=== PATIENT | female | born 1955 | race Asian ===

== ENCOUNTER 2016-12-02 04:26 | Emergency (ER) | payer BC, MEDICAID ==
[~2016-12-02] VITALS: Ht 160 cm; Wt 64.0 kg
[~2016-12-02 04:26] MED LIST: HEARTBURN MED
[2016-12-02] MEDS ORDERED: ONDANSETRON 2MG/ML, 2ML ONE (05:17)
[2016-12-02] MEDS ORDERED: HYDROmorphone 1 MG/ML, 1ML ONE ×2 (05:17→06:58)
[2016-12-02] MEDS ORDERED: KETOROLAC 30 MG/1 ML ONE (05:17)
[2016-12-02] MEDS: HYDROmorphone 1 MG/ML, 1ML IVPush PRN ×2 (05:25→07:03)
[2016-12-02] MEDS ORDERED: SODIUM CHLORIDE FLUSH 10ML SYR IVF ONE (05:30)
[2016-12-02] MEDS ORDERED: KETOROLAC 30 MG/1 ML IVPush ONE (05:30)
[2016-12-02] MEDS ORDERED: SODIUM CHLORIDE 0.9% 1,000ML IV ONE (05:30)
[2016-12-02] MEDS ORDERED: ONDANSETRON 2MG/ML, 2ML IVPush ONE (05:30)
[2016-12-02] MEDS ORDERED: IBUP200C PO (05:33)
[2016-12-02] MEDS ORDERED: DOXY25TA PO (05:34)
[2016-12-02 05:54] LABS: BLOOD UREA NITROGEN 24 mg/dL (7-18)
[2016-12-02] MEDS ORDERED: OMNIPAQUE 350 MG/ML, 100ML BOTTLE ONE (07:59)
[2016-12-02 08:52] VITALS: BP 100/71
== END 2016-12-02 08:54 | disposition home or self-care (01) ==
LOC: ED 05:15
DX: N20.1 Calculus of ureter (principal); N23 Unspecified renal colic; N13.30 Unspecified hydronephrosis; K21.9 Gastro-esophageal reflux disease without esophagitis; F17.200 Nicotine dependence, unspecified, uncomplicated; Z88.0 Allergy status to penicillin
CPT/HCPCS: 36415; 74177; 80048; 81001; 82040; 85025; 96361; 96374; 96375; 99285; J1170; J1885; J2405; J7030; Q9967

== ENCOUNTER 2018-04-18 00:24 | Emergency (ER) | payer SELFPAY ==
[~2018-04-18] VITALS: Ht 157.5 cm; Wt 60.0 kg
[~2018-04-18 00:24] MED LIST changes: +DOXY25TA45 PO; +IBUP-1623 PO
[2018-04-18 00:25] VITALS: BP 116/72
[2018-04-18] MEDS ORDERED: METHOCARBAMOL 750 MG TABLET ONE (00:58)
[2018-04-18] MEDS ORDERED: IBUPROFEN 800 MG TABLET ONE (00:58)
[2018-04-18] MEDS ORDERED: IBUPROFEN 200 MG TABLET PO ONE (01:00)
[2018-04-18] MEDS ORDERED: METHOCARBAMOL 750 MG TABLET PO ONE (01:00)
== END 2018-04-18 02:05 | disposition home or self-care (01) ==
LOC: ED 00:42
DX: M54.2 Cervicalgia (principal); M25.531 Pain in right wrist; K21.9 Gastro-esophageal reflux disease without esophagitis
CPT/HCPCS: 72050; 99283

== ENCOUNTER 2019-05-11 17:37 | Emergency (ER) | payer OTHER ==
[~2019-05-11] VITALS: Ht 157.5 cm; Wt 56.2 kg
--- NOTE | 2019-05-11 18:01 | NUR ---
NO ANSWER TO TRIAGE X 1.
[2019-05-11 18:47] LABS: BASOPHILS # (AUTO) 0.03 x10^3/uL (0-0.1); BASOPHILS % (AUTO) 1 % (0-1); EOSINOPHILS # (AUTO) 0.07 x10^3/uL (0-0.4); EOSINOPHILS % (AUTO) 1 % (1-7); LYMPHOCYTES # (AUTO) 2.13 x10^3/uL (1-3.4); LYMPHOCYTES % (AUTO) 40 % (22-44); MD NO; MEAN CORPUSCULAR HEMOGLOBIN 30.9 pg (27.0-34.8); MEAN CORPUSCULAR HGB CONC 32.3 g/dL (32.4-35.8); MEAN CORPUSCULAR VOLUME 95.6 fL (80-100); MEAN PLATELET VOLUME 8.4 fL (7.4-10.4); MONOCYTES # (AUTO) 0.38 x10^3/uL (0.2-0.8); MONOCYTES % (AUTO) 7 % (2-9); NEUTROPHILS # (AUTO) 2.76 x10^3/uL (1.8-6.8); NEUTROPHILS % (AUTO) 52 % (42-75); PLATELET COUNT 295 x10^3/uL (130-400); RED BLOOD COUNT 4.52 x10^6/uL (3.82-5.3); RED CELL DISTRIBUTION WIDTH 14.2 % (9.6-15.2)
[2019-05-11 18:50] LABS: MICROSCOPIC INDICATED
[2019-05-11 18:57] LABS: CULTURE INDICATED? NO
[2019-05-11 19:00] LABS: ALANINE AMINOTRANSFERASE 27 U/L (12-78); ALBUMIN 3.6 g/dL (3.4-5.0); ANION GAP 5 mmol/L (5-15); CALCIUM 9.2 mg/dL (8.5-10.1); CHLORIDE 114 mmol/L (98-107); CREATININE 0.79 mg/dL (0.55-1.02)
[2019-05-11 19:02] LABS: ALKALINE PHOSPHATASE 185 U/L (45-117); BILIRUBIN,TOTAL 0.3 mg/dL (0.2-1.0); TOTAL PROTEIN 7.1 g/dL (6.4-8.2)
--- NOTE | 2019-05-11 22:55 | NUR ---
PT TO LOBBY
--- NOTE | 2019-05-11 22:57 | NUR ---
pt to room from lobby
[2019-05-11] MEDS ORDERED: MORPHINE SULFATE 4 MG/ML, 1ML IVPush PRN (23:30)
[2019-05-11] MEDS ORDERED: SODIUM CHLORIDE FLUSH 10ML SYR IVF ONE (23:30)
[2019-05-11] MEDS ORDERED: ONDANSETRON 2MG/ML, 2ML IVPush ONE (23:30)
--- NOTE | 2019-05-11 23:36 | NUR ---
Pt here for sudden onset of pelvic pain and severe distress of unknown cause. Pt reports it was sudden and she could not tolerate it anymore. Pt denies any trauma. Pt reports she fell on her butt 19 years ago.Pt has stable pelvis and pain is towards her central pelvic area where pt points. Pt conencted to monitors and call light in reach. Awaiting further orders.
--- NOTE | 2019-05-11 23:52 | NUR ---
PIV placed and pt to ct a this time.
[2019-05-12] MEDS ORDERED: OMNIPAQUE 350 MG/ML, 100ML BOTTLE ONE (00:05)
[2019-05-12] MEDS ORDERED: ONDANSETRON 2MG/ML, 2ML ONE (00:08)
[2019-05-12] MEDS ORDERED: MORPHINE SULFATE 4 MG/ML, 1ML ONE (00:09)
--- NOTE | 2019-05-12 00:18 | NUR ---
Pt medicated per emar. Report to Luda Spivey RN
--- NOTE | 2019-05-12 00:30 | NUR ---
REPORT RECEIVED FROM ALIREZA RIVERA. ASSUMING CARE OF PT AT THIS TIME
[2019-05-12 01:09] VITALS: BP 131/90
--- NOTE | 2019-05-12 01:10 | NUR ---
break rn, pt resting, ststes that she feels better vss
--- NOTE | 2019-05-12 01:27 | NUR ---
Patient/Caregiver given discharge instructions and they have confirmed that they understand the instructions. Patient ambulatory with steady gait.
== END 2019-05-12 01:28 | disposition home or self-care (01) ==
LOC: ED 05-12 01:22
DX: R31.29 Other microscopic hematuria (principal); R10.32 Left lower quadrant pain; R10.31 Right lower quadrant pain; G89.29 Other chronic pain; F17.200 Nicotine dependence, unspecified, uncomplicated
CPT/HCPCS: 36415; 74177; 76770; 80053; 81001; 85025; 96374; 96375; 99284; J2270; J2405; Q9967

== ENCOUNTER 2019-05-23 00:45 | Emergency (ER) | payer OTHER ==
[~2019-05-23] VITALS: Ht 162.6 cm; Wt 67.0 kg
[2019-05-23] MEDS ORDERED: SODIUM CHLORIDE FLUSH 10ML SYR IVF ONE (01:00)
[2019-05-23 01:14] LABS: BASOPHILS # (AUTO) 0.09 x10^3/uL (0-0.1); BASOPHILS % (AUTO) 1 % (0-1); EOSINOPHILS % (AUTO) 1 % (1-7); LYMPHOCYTES # (AUTO) 2.53 x10^3/uL (1-3.4); LYMPHOCYTES % (AUTO) 24 % (22-44); MD NO; MEAN CORPUSCULAR HEMOGLOBIN 30.7 pg (27.0-34.8); MEAN CORPUSCULAR HGB CONC 32.5 g/dL (32.4-35.8); MEAN CORPUSCULAR VOLUME 94.6 fL (80-100); MEAN PLATELET VOLUME 7.9 fL (7.4-10.4); MONOCYTES # (AUTO) 0.62 x10^3/uL (0.2-0.8); MONOCYTES % (AUTO) 6 % (2-9); NEUTROPHILS # (AUTO) 7.09 x10^3/uL (1.8-6.8); NEUTROPHILS % (AUTO) 68 % (42-75); PLATELET COUNT 273 x10^3/uL (130-400); RED BLOOD COUNT 4.63 x10^6/uL (3.82-5.3); RED CELL DISTRIBUTION WIDTH 13.6 % (9.6-15.2)
[2019-05-23 01:25] LABS: ALANINE AMINOTRANSFERASE 26 U/L (12-78); ALBUMIN 3.6 g/dL (3.4-5.0); ANION GAP 6 mmol/L (5-15); CALCIUM 9.5 mg/dL (8.5-10.1); CHLORIDE 112 mmol/L (98-107); CREATININE 1.35 mg/dL (0.55-1.02)
[2019-05-23 01:28] LABS: ALKALINE PHOSPHATASE 204 U/L (45-117); BILIRUBIN,TOTAL 0.2 mg/dL (0.2-1.0); TOTAL PROTEIN 7.2 g/dL (6.4-8.2)
[2019-05-23] MEDS ORDERED: MORPHINE SULFATE 4 MG/ML, 1ML ONE ×2 (01:35→02:04)
[2019-05-23] MEDS: MORPHINE SULFATE 4 MG/ML, 1ML IVPush PRN ×2 (01:37→02:07)
[2019-05-23] MEDS ORDERED: PROCHLORPERAZINE 5 MG/ML, 2ML ONE (01:53)
[2019-05-23] MEDS ORDERED: PROCHLORPERAZINE 5 MG/ML, 2ML IVPush ONE (02:00)
[2019-05-23] MEDS ORDERED: SODIUM CHLORIDE 0.9% 1,000ML IVBOLUS ONE (02:00)
--- NOTE | 2019-05-23 02:10 | NUR ---
PT MEDICATED PER JUL. PAIN 02/19, WARM BLANKETS PROVIDED. REPOSITIONED FOR COMFORT. FAMILY AT BEDSIDE. NO OTHER NEEDS AT THIS TIME.
[2019-05-23 02:13] LABS: MICROSCOPIC INDICATED
--- NOTE | 2019-05-23 02:16 | NUR ---
PT PLACED ON 2L 02. 96%
[2019-05-23 02:29] LABS: CULTURE INDICATED? NO
[2019-05-23] MEDS ORDERED: OMNIPAQUE 350 MG/ML, 100ML BOTTLE ONE (02:56)
--- NOTE | 2019-05-23 03:32 | NUR ---
PT BACK FROM CT, WATER PROVIDED, REPOSITIONED FOR COMFORT.
[2019-05-23] MEDS ORDERED: KETOROLAC 30 MG/1 ML ONE (04:14)
[2019-05-23 04:29] VITALS: BP 117/61
[2019-05-23] MEDS ORDERED: KETOROLAC 30 MG/1 ML IVPush ONE (04:30)
== END 2019-05-23 04:32 | disposition home or self-care (01) ==
LOC: ED 01:19
DX: N13.2 Hydronephrosis with renal and ureteral calculous obstruction (principal); R10.32 Left lower quadrant pain; R31.9 Hematuria, unspecified; F17.200 Nicotine dependence, unspecified, uncomplicated; K21.9 Gastro-esophageal reflux disease without esophagitis; R11.2 Nausea with vomiting, unspecified
CPT/HCPCS: 36415; 74174; 76830; 80053; 81001; 83690; 85025; 96361; 96374; 96375; 99284; J0780; J1885; J2270; J7030; Q9967

== ENCOUNTER 2020-03-09 22:06 | Inpatient (IN) | payer MEDICAID ==
[~2020-03-09] VITALS: Ht 160 cm; Wt 55.2 kg
--- NOTE | 2020-03-09 22:41 | NUR ---
PT CAME IN CO OF BILAT FLANK PAIN. WAS SEEN AT [facility] AND DX WITH KIDNEY STONES. THE SON OF SEEMED UNSURE BUT HE SAID "SHE MIGHT BE GETTING SURGERY ON THEM". PT AMBULATED TO BATHROOM WITH ASSISTANCE AND PROVIDED UA. PT RESTING IN [facility]. SON BEDSIDE.
[2020-03-09] MEDS ORDERED: ONDANSETRON 2MG/ML, 2ML ONE (23:23)
[2020-03-09] MEDS ORDERED: MORPHINE SULFATE 4 MG/ML, 1ML ONE (23:23)
[2020-03-09] MEDS ORDERED: MORPHINE SULFATE 4 MG/ML, 1ML IVPush ONE (23:30)
[2020-03-09] MEDS ORDERED: ONDANSETRON 2MG/ML, 2ML IVPush ONE (23:30)
--- NOTE | 2020-03-09 23:39 | NUR ---
PT RESTING IN [facility]. NAD. VSS
[2020-03-09 23:42] LABS: BASOPHILS % (AUTO) 1 % (0-1); EOSINOPHILS % (AUTO) 2 % (1-7); LYMPHOCYTES % (AUTO) 36 % (22-44); MEAN CORPUSCULAR HEMOGLOBIN 31.1 pg (27.0-34.8); MEAN CORPUSCULAR HGB CONC 32.4 g/dL (32.4-35.8); MEAN PLATELET VOLUME 7.6 fL (7.4-10.4); MONOCYTES % (AUTO) 8 % (2-9); NEUTROPHILS % (AUTO) 53 % (42-75); PLATELET COUNT 256 x10^3/uL (130-400); RED BLOOD COUNT 4.21 x10^6/uL (3.82-5.3); RED CELL DISTRIBUTION WIDTH 13.3 % (9.6-15.2)
[2020-03-09 23:44] LABS: MD NO
[2020-03-09 23:48] LABS: MICROSCOPIC AUTO
[2020-03-09 23:52] LABS: ALBUMIN 3.7 g/dL (3.4-5.0); ANION GAP 3 mmol/L (5-15); CALCIUM 9.2 mg/dL (8.5-10.1); CHLORIDE 109 mmol/L (98-107)
[2020-03-09 23:55] LABS: TROPONIN I < 0.015 ng/mL (0.000-0.045)
[2020-03-10] MEDS ORDERED: OMNIPAQUE 350 MG/ML, 100ML BOTTLE ONE (00:35)
[2020-03-10] MEDS ORDERED: CEFTRIAXONE PMX 1GM/50ML 50 ML ONE (00:37)
--- NOTE | 2020-03-10 00:49 | NUR ---
IV FLUIDS INFUSING AT THIS TIME. PT STATES "IM FEELING MUCH BETTER. THANK YOU"
[2020-03-10] MEDS ORDERED: CEFTRIAXONE PMX 1GM/50ML 50 ML IV ONE ×2 (01:00→06:57)
[2020-03-10] MEDS ORDERED: SODIUM CHLORIDE 0.9% 1,000ML IVBOLUS ONE (01:00)
[2020-03-10] MEDS ORDERED: AZITHROMYCIN 500 MG in SODIUM CHLORIDE 0.9% 250 ML IV ONE (01:30)
--- NOTE | 2020-03-10 01:48 | NUR ---
REPORT OF PT FROM NICOLE BOND AND ASSUMING CARE OF PT AT THIS TIME.
[2020-03-10] MEDS ORDERED: NICOTINE 21 MG/24 HR PATCH.TD24 ONE (02:28)
[2020-03-10] MEDS: NICOTINE 14MG/24 HR PATCH.TD24 TD ONE ×2 (02:47→03:00)
--- NOTE | 2020-03-10 02:48 | NUR ---
VERBAL ORDERS RECEIVED FOR 21 MG NICOTINE PATCH. CLARIFIED ORIGINAL ORDER WITH DR. PALACIOS WITH PERMISSION TO CHANGE ORDER TO 21 MG PATCH FOR PT OVER PACK A DAY SMOKER.
[2020-03-10] MEDS ORDERED: ENALAPRILAT 1.25 MG/ML, 2ML IVPush PRN (03:00)
[2020-03-10] MEDS ORDERED: LABETALOL 5MG/ML, 20ML IVPush PRN (03:00)
[2020-03-10] MEDS ORDERED: NICOTINE 21 MG/24 HR PATCH.TD24 TD ONE (03:00)
[2020-03-10] MEDS ORDERED: morphine SULFATE 10 MG/ML, 1ML IVPush PRN (03:00)
[2020-03-10] MEDS ORDERED: BISACODYL 10 MG SUPP PR PRN (03:00)
[2020-03-10] MEDS ORDERED: ONDANSETRON ODT 4 MG PO PRN (03:00)
[2020-03-10] MEDS ORDERED: DOCUSATE 100 MG CAPSULE PO PRN (03:00)
[2020-03-10] MEDS ORDERED: ONDANSETRON 2MG/ML, 2ML IVPush PRN ×2 (03:00→08:00)
[2020-03-10] MEDS: SODIUM CHLORIDE 0.9% 1,000 ML IV SCH ×2 (03:00→12:15)
[2020-03-10] MEDS: LABETALOL MC SCH ×4 (03:00→23:28)
[2020-03-10] MEDS ORDERED: DOXYLAMINE 25MG TABLET PO PRN (03:00)
--- NOTE | 2020-03-10 03:02 | NUR ---
PER PT, PLEASE CALL TERRY HCAIREZ AT [phone] WITH ANY CHANGES IN PT CONDITION OR DISPOSITION.
--- NOTE | 2020-03-10 03:03 | NUR ---
HOSPITAL BED REQUESTED FOR PT AT THIS TIME.
--- NOTE | 2020-03-10 04:53 | NUR ---
PT CHANGED INTO HOSPITAL BED AT THIS TIME.
[2020-03-10] MEDS ORDERED: FENTANYL PF 100 MCG/2ML ONE ×2 (06:38→07:54)
[2020-03-10] MEDS ORDERED: MIDAZOLAM 1 MG/ML, 2ML ONE (06:38)
--- NOTE | 2020-03-10 06:40 | NUR ---
Report given to [employer]PPORT TEAM [employer]
[2020-03-10] MEDS ORDERED: CHLORHEXIDINE 15 ML UDC ONE (06:45)
[2020-03-10] MEDS ORDERED: PROPOFOL 10 MG/ML, 20ML ONE (06:57)
[2020-03-10] MEDS ORDERED: ONDANSETRON 2MG/ML, 2ML ONE (06:57)
[2020-03-10] MEDS ORDERED: DEXAMETHASONE 4 MG/ML, 1ML ONE (06:57)
[2020-03-10] MEDS ORDERED: LIDOCAINE PF 2%, 5ML ONE (06:57)
[2020-03-10] MEDS ORDERED: KETOROLAC 30 MG/1 ML ONE (07:54)
[2020-03-10] MEDS ORDERED: ACETAMINOPHEN 650 MG/20.3 ML UDC ONE (07:54)
[2020-03-10] MEDS ORDERED: OXYcodone 5 MG/5 ML ORAL.SOL UDC ONE (07:54)
[2020-03-10] MEDS ORDERED: METHOCARBAMOL 1,000 MG in DEXTROSE 5% 100 ML IV PRN (08:00)
[2020-03-10] MEDS ORDERED: HYDROmorphone 1 MG/ML, 1ML INJ IVPush PRN (08:00)
[2020-03-10] MEDS ORDERED: DIAZEPAM 5 MG/ML, 2ML IVPush PRN (08:00)
[2020-03-10] MEDS ORDERED: KETOROLAC 30 MG/1 ML IV PRN (08:00)
[2020-03-10] MEDS ORDERED: HALOPERIDOL 5 MG/ML IV PRN (08:00)
[2020-03-10] MEDS ORDERED: LABETALOL 5MG/ML, 20ML IV PRN (08:00)
[2020-03-10] MEDS ORDERED: ACETAMINOPHEN 325 MG TABLET PO PRN (08:00)
[2020-03-10] MEDS ORDERED: OXYcodone 5 MG/5 ML ORAL.SOL UDC PO PRN (08:00)
[2020-03-10] MEDS ORDERED: FENTANYL PF 100 MCG/2ML IV PRN (08:00)
[2020-03-10] MEDS ORDERED: PROMETHAZINE 25 MG/ML, 1ML IVPush PRN (08:00)
[2020-03-10] MEDS ORDERED: hydrALAzine 20 MG/ML, 1ML IV PRN (08:00)
[2020-03-10] MEDS: ACETAMINOPHEN 325 MG TABLET PO PRN ×2 (08:02→12:30)
[2020-03-10] MEDS ORDERED: PHENAZOPYRIDINE 200 MG TABLET ONE (08:21)
[2020-03-10] MEDS ORDERED: PHENAZOPYRIDINE 200 MG TABLET PO ONE (08:30)
[2020-03-10 12:40] LABS: BASOPHILS % (AUTO) 0 % (0-1); EOSINOPHILS % (AUTO) 0 % (1-7); LYMPHOCYTES % (AUTO) 7 % (22-44); MEAN CORPUSCULAR HEMOGLOBIN 30.9 pg (27.0-34.8); MEAN CORPUSCULAR HGB CONC 32.1 g/dL (32.4-35.8); MEAN PLATELET VOLUME 7.7 fL (7.4-10.4); MONOCYTES % (AUTO) 1 % (2-9); NEUTROPHILS % (AUTO) 92 % (42-75); PLATELET COUNT 238 x10^3/uL (130-400); RED BLOOD COUNT 4.13 x10^6/uL (3.82-5.3)
[2020-03-10 12:44] LABS: ANION GAP 3 mmol/L (5-15); CALCIUM 9.2 mg/dL (8.5-10.1); CHLORIDE 107 mmol/L (98-107)
[2020-03-10 12:45] LABS: CREATININE 0.64 mg/dL (0.55-1.02)
[2020-03-10 13:06] LABS: MD SCAN
[2020-03-10 14:07] VITALS: BP 116/77
[2020-03-10] MEDS: IBUPROFEN 600 MG TABLET PO PRN ×2 (14:14→23:46)
[2020-03-10] MEDS ORDERED: NICOTINE 21 MG/24 HR PATCH.TD24 TD PRN (15:30)
[2020-03-10] MEDS: HYDROcodone/APAP 5/325 TABLET PO PRN ×3 (16:22→21:13)
[2020-03-10] MEDS ORDERED: PHENAZOPYRIDINE 200 MG TABLET PO PRN (17:30)
[2020-03-10 20:44] VITALS: BP 159/88
[2020-03-11 01:36] VITALS: BP 148/93
[2020-03-11] MEDS: HYDROcodone/APAP 5/325 TABLET PO PRN ×4 (02:15→19:05)
[2020-03-11 06:08] LABS: BASOPHILS % (AUTO) 0 % (0-1); EOSINOPHILS % (AUTO) 0 % (1-7); LYMPHOCYTES % (AUTO) 25 % (22-44); MEAN CORPUSCULAR HEMOGLOBIN 30.9 pg (27.0-34.8); MEAN CORPUSCULAR HGB CONC 31.9 g/dL (32.4-35.8); MEAN PLATELET VOLUME 7.9 fL (7.4-10.4); MONOCYTES % (AUTO) 7 % (2-9); NEUTROPHILS % (AUTO) 68 % (42-75); PLATELET COUNT 243 x10^3/uL (130-400); RED BLOOD COUNT 3.98 x10^6/uL (3.82-5.3); RED CELL DISTRIBUTION WIDTH 13.1 % (9.6-15.2)
[2020-03-11 06:15] LABS: CHLORIDE 107 mmol/L (98-107)
[2020-03-11 06:23] LABS: MD NO
[2020-03-11 06:33] LABS: ANION GAP 4 mmol/L (5-15); CALCIUM 9.7 mg/dL (8.5-10.1); CREATININE 0.82 mg/dL (0.55-1.02)
[2020-03-11] MEDS: LABETALOL MC SCH ×2 (07:43→19:00)
[2020-03-11 08:17] VITALS: BP 129/87
[2020-03-11 14:06] VITALS: BP 128/84
[2020-03-11] MEDS ORDERED: PHENAZOPYRIDINE 200 MG TABLET PO PRN (14:30)
[2020-03-11] MEDS ORDERED: OXYBUTYNIN CHLORIDE 5 MG TABLET PO SCH (16:00)
[2020-03-11] MEDS ORDERED: PHEN-583 PO (17:24)
[2020-03-11] MEDS ORDERED: OXYB5TAB10 PO (17:24)
== END 2020-03-11 20:09 | disposition home or self-care (01) | DRG 660 ==
LOC: ED 23:08 → EDIP 03-10 02:07 → 2N 03-10 10:15 → 4NE 03-10 16:11
PROVIDERS: ADMIT Family Medicine; ATTEND Family Medicine
PROC: 0T778DZ Dilation of Left Ureter with Intraluminal Device, Via Natural or Artificial Opening Endoscopic (ICD-10-PCS; 2020-03-10)
PROC: 0TC78ZZ Extirpation of Matter from Left Ureter, Via Natural or Artificial Opening Endoscopic (ICD-10-PCS; principal; 2020-03-10 07:00)
DX: N20.2 Calculus of kidney with calculus of ureter (principal); N13.6 Pyonephrosis; F17.210 Nicotine dependence, cigarettes, uncomplicated; R09.02 Hypoxemia; G43.C0 Periodic headache syndromes in child or adult, not intractable; K21.9 Gastro-esophageal reflux disease without esophagitis; Z87.11 Personal history of peptic ulcer disease; Z87.442 Personal history of urinary calculi; Z88.0 Allergy status to penicillin
CPT/HCPCS: 36415; 70450; 70498; 71045; 74176; 76000; 80048; 81001; 82040; 82360; 84484; 85025; 87040; 87086; 87635; 88300; 93005; G0378; J0456; J0696; J1100; J1885; J2250; J2405; J2704; J3010; Q9967; C1769; C2617; C2627; J2270; J7030; J7050

== ENCOUNTER 2020-03-19 12:13 | Emergency (ER) | payer MEDICAID ==
[~2020-03-19] VITALS: Ht 160 cm; Wt 62.0 kg
[~2020-03-19 12:13] MED LIST changes: +OXYB5TAB10 PO; +PHEN-583 PO
--- NOTE | 2020-03-19 12:22 | NUR ---
LATE ENTRY DUE TO PATIENT CARE:PATIENT BIB [facility] FOR SEVERE LEFT FLANK PAIN. PATIENT HAD LITHROTRIPSY LAST WEEK FOR KIDNEY STONES, AND STENT REMOVAL WAS DONE YESTERDAY. PATIENT WOKE UP THIS MORNING WITH SEVERE LEFT-SIDED FLANK PAIN, AND PER EMS WAS PEEING BLOOD. EMS REPORTS PATIENT THREW UP LAST NIGHT AND THIS MORNING, BUT NO MORE EPISODES OF EMESIS. BLOOD PRESSURE AND HR EN ROUTE 180/100 AND 110, PATIENT GIVEN 200 MCG OF FENTANYL AND 4 MG ZOFRAN AND BP AND HR WENT DOWN TO 110/66 AND 90. PER EMS PATIENT WAS WRITHING IN PAIN ON THE FLOOR WHEN THE ARRIVED AT PATIENT'S HOUSE. PATIENT CONNECTED TO VITALS MACHINE, GUARDED MOVEMENTS OF LEFT FLANK. ASSISTED PATIENT TO BSC FOR URINE SAMPLE, NO BLOOD NOTED IN URINE, URINE IS ORANGE, DAUGHTER AT BEDSIDE.ERMD AT BEDSIDE FOR EVALUATION.
[2020-03-19] MEDS ORDERED: SODIUM CHLORIDE FLUSH 10ML SYR IVF ONE (12:30)
[2020-03-19] MEDS ORDERED: HYDROmorphone 2 MG/ML, 1ML IVPush PRN (12:30)
[2020-03-19] MEDS ORDERED: ONDANSETRON 2MG/ML, 2ML IVPush ONE (12:30)
--- NOTE | 2020-03-19 12:41 | NUR ---
PATIENT TO IMAGING.
[2020-03-19] MEDS ORDERED: ONDANSETRON 2MG/ML, 2ML ONE (12:49)
[2020-03-19] MEDS ORDERED: MORPHINE SULFATE 4 MG/ML, 1ML ONE (12:49)
[2020-03-19] MEDS ORDERED: HYDROmorphone 1 MG/ML, 1ML INJ ONE (12:54)
--- NOTE | 2020-03-19 12:59 | NUR ---
PATIENT MEDICATED PER eMAR, URINE SAMPLE COLLECTED AND SENT TO LAB. NUCLEAR MEDICINE CHIEF TECHNOLOGIST AT BEDSIDE.
[2020-03-19 13:13] LABS: BASOPHILS % (AUTO) 1 % (0-1); EOSINOPHILS % (AUTO) 2 % (1-7); LYMPHOCYTES % (AUTO) 30 % (22-44); MEAN CORPUSCULAR HEMOGLOBIN 30.8 pg (27.0-34.8); MEAN CORPUSCULAR HGB CONC 32.2 g/dL (32.4-35.8); MEAN PLATELET VOLUME 7.6 fL (7.4-10.4); MONOCYTES % (AUTO) 10 % (2-9); NEUTROPHILS % (AUTO) 57 % (42-75); PLATELET COUNT 304 x10^3/uL (130-400); RED CELL DISTRIBUTION WIDTH 13.5 % (9.6-15.2)
[2020-03-19 13:22] LABS: ALBUMIN 3.8 g/dL (3.4-5.0); ANION GAP 7 mmol/L (5-15); CALCIUM 9.7 mg/dL (8.5-10.1); CHLORIDE 108 mmol/L (98-107); CREATININE 1.13 mg/dL (0.55-1.02); MD NO
[2020-03-19 13:23] LABS: MICROSCOPIC INDICATED
--- NOTE | 2020-03-19 13:32 | NUR ---
ERMD AT BEDSIDE TO DISCUSS POC.
[2020-03-19 13:48] VITALS: BP 120/69
--- NOTE | 2020-03-19 14:09 | NUR ---
Patient and daughter given discharge instructions and prescription and they have confirmed that they understand the instructions, all questions answered. Patient ambulatory with steady gait from ED.
== END 2020-03-19 14:12 | disposition home or self-care (01) ==
LOC: ED 12:48
DX: N23 Unspecified renal colic (principal); R31.9 Hematuria, unspecified; G89.18 Other acute postprocedural pain; K21.9 Gastro-esophageal reflux disease without esophagitis; F17.200 Nicotine dependence, unspecified, uncomplicated; Z90.89 Acquired absence of other organs
CPT/HCPCS: 36415; 74176; 80048; 81001; 82040; 85025; 87086; 96374; 96375; 99284; J1170; J2405

== ENCOUNTER 2020-06-17 10:07 | Inpatient (IN) | payer MEDICAID ==
[~2020-06-17] VITALS: Ht 157.5 cm; Wt 54.9 kg
--- NOTE | 2020-06-17 10:21 | NUR ---
pt came in with ems, with complaints of epigastric pain since 1000 this morning. stated she "took a unknown med for hre kidney" has had n/v. vss. SR 68 on tele. 4 mg zofran and 100 mcg fent admin by EMS
[2020-06-17] MEDS ORDERED: NITROGLYCERIN SINGLE TAB 0.4 MG SL ONE (10:40)
[2020-06-17] MEDS ORDERED: ASPIRIN 81 MG TABLET CHEW ONE (10:40)
--- NOTE | 2020-06-17 10:46 | NUR ---
admin nitro. bp 126/97. hr 70
--- NOTE | 2020-06-17 10:52 | NUR ---
no pain resolution from nitro. spoke with no 2nd dose. admin gi cocktail
[2020-06-17] MEDS ORDERED: MAALOX/HYOSCYAMINE/LIDOCAINE 45 ML BTL ONE (10:54)
[2020-06-17] MEDS ORDERED: MAALOX/HYOSCYAMINE/LIDOCAINE 45 ML BTL PO ONE ×2 (11:00→16:00)
[2020-06-17] MEDS ORDERED: SODIUM CHLORIDE FLUSH 10ML SYR IVF ONE (11:00)
[2020-06-17] MEDS ORDERED: NITROGLYCERIN SINGLE TAB 0.4 MG SL PRN (11:00)
[2020-06-17] MEDS ORDERED: ASPIRIN 81 MG TABLET CHEW PO ONE (11:00)
[2020-06-17 11:13] LABS: BASOPHILS % (AUTO) 1 % (0-1); EOSINOPHILS % (AUTO) 0 % (1-7); LYMPHOCYTES % (AUTO) 22 % (22-44); MEAN CORPUSCULAR HEMOGLOBIN 31.8 pg (27.0-34.8); MEAN CORPUSCULAR HGB CONC 33.1 g/dL (32.4-35.8); MONOCYTES % (AUTO) 7 % (2-9); NEUTROPHILS % (AUTO) 69 % (42-75); PLATELET COUNT 231 x10^3/uL (130-400); RED BLOOD COUNT 4.42 x10^6/uL (3.82-5.3); RED CELL DISTRIBUTION WIDTH 13.5 % (9.6-15.2)
[2020-06-17 11:23] LABS: MD NO
[2020-06-17 11:26] LABS: ALBUMIN 3.7 g/dL (3.4-5.0); ANION GAP 8 mmol/L (5-15); CALCIUM 9.4 mg/dL (8.5-10.1); CHLORIDE 111 mmol/L (98-107)
[2020-06-17] MEDS ORDERED: FAMOTIDINE 20 MG/2 ML IVPush ONE (11:30)
[2020-06-17 11:33] LABS: ALANINE AMINOTRANSFERASE 24 U/L (12-78); ALKALINE PHOSPHATASE 147 U/L (45-117); BILIRUBIN,TOTAL 0.4 mg/dL (0.2-1.0); CREATININE 0.61 mg/dL (0.55-1.02); TROPONIN I < 0.015 ng/mL (0.000-0.045)
--- NOTE | 2020-06-17 11:50 | NUR ---
pt in bed states nmo resolution of pain
[2020-06-17] MEDS ORDERED: KETOROLAC 30 MG/1 ML ONE (11:55)
[2020-06-17] MEDS ORDERED: FAMOTIDINE 20 MG/2 ML ONE (11:58)
[2020-06-17] MEDS ORDERED: KETOROLAC 30 MG/1 ML IVPush ONE (12:00)
--- NOTE | 2020-06-17 12:02 | NUR ---
admin pain meds.
--- NOTE | 2020-06-17 12:41 | NUR ---
MED REC DONE. SON TRANSLATE OVER THE PHONE.
[2020-06-17 14:00] VITALS: BP 124/80
[2020-06-17] MEDS ORDERED: PHENAZOPYRIDINE 200 MG TABLET PO PRN (16:00)
[2020-06-17] MEDS ORDERED: DOCUSATE 100 MG CAPSULE PO PRN (16:00)
[2020-06-17] MEDS ORDERED: GUAIFENESIN/DM 200-20MG, 10ML UDC PO PRN (16:00)
[2020-06-17] MEDS ORDERED: ONDANSETRON 2MG/ML, 2ML IVPush PRN (16:00)
[2020-06-17] MEDS ORDERED: NITROGLYCERIN 0.4 MG BOTTLE (25 TABS) SL PRN (16:00)
[2020-06-17] MEDS ORDERED: TEMAZEPAM 15 MG CAPSULE PO PRN (16:00)
[2020-06-17] MEDS ORDERED: NITROGLYCERIN 0.4 MG/SPRAY SL PRN (16:00)
[2020-06-17] MEDS ORDERED: ACETAMINOPHEN 325 MG TABLET PO PRN (16:00)
[2020-06-17] MEDS ORDERED: ENALAPRILAT 1.25 MG/ML, 2ML IVPush PRN (16:00)
[2020-06-17] MEDS ORDERED: METHOCARBAMOL 500 MG TABLET PO PRN (16:00)
[2020-06-17 16:39] LABS: TROPONIN I < 0.015 ng/mL (0.000-0.045)
[2020-06-17] MEDS ORDERED: OMNIPAQUE 350 MG/ML, 100ML BOTTLE ONE (17:29)
[2020-06-17] MEDS: ENOXAPARIN 40 MG/0.4 ML SQ SCH (17:59)
[2020-06-17] MEDS: LACTATED RINGERS 1,000 ML IV SCH (18:01)
[2020-06-17 19:41] VITALS: BP 100/67
[2020-06-17] MEDS: FAMOTIDINE 20 MG TABLET PO SCH (20:26)
[2020-06-17 22:14] LABS: TROPONIN I < 0.015 ng/mL (0.000-0.045)
[2020-06-18 01:50] VITALS: BP 100/65
[2020-06-18 04:54] LABS: BASOPHILS % (AUTO) 1 % (0-1); EOSINOPHILS % (AUTO) 2 % (1-7); LYMPHOCYTES % (AUTO) 45 % (22-44); MEAN CORPUSCULAR HEMOGLOBIN 31.7 pg (27.0-34.8); MEAN CORPUSCULAR HGB CONC 33.3 g/dL (32.4-35.8); MEAN PLATELET VOLUME 8.2 fL (7.4-10.4); MONOCYTES % (AUTO) 7 % (2-9); NEUTROPHILS % (AUTO) 46 % (42-75); PLATELET COUNT 221 x10^3/uL (130-400); RED BLOOD COUNT 3.97 x10^6/uL (3.82-5.3); RED CELL DISTRIBUTION WIDTH 13.3 % (9.6-15.2)
[2020-06-18 04:55] LABS: MD NO
[2020-06-18 05:03] LABS: ANION GAP 4 mmol/L (5-15); CALCIUM 8.9 mg/dL (8.5-10.1); CHLORIDE 115 mmol/L (98-107); CREATININE 0.65 mg/dL (0.55-1.02)
[2020-06-18] MEDS: OXYcodone IR 5MG TABLET PO PRN ×2 (06:06→22:06)
[2020-06-18] MEDS: LACTATED RINGERS 1,000 ML IV SCH ×2 (06:07→23:06)
[2020-06-18 07:24] VITALS: BP 113/76
[2020-06-18] MEDS ORDERED: REGADENOSON 0.4 MG/5 ML SYRINGE ONE (08:26)
[2020-06-18] MEDS ORDERED: FAMOTIDINE 40 MG TABLET ONE (10:33)
[2020-06-18] MEDS: FAMOTIDINE 20 MG TABLET PO SCH ×2 (10:36→21:39)
[2020-06-18] MEDS: NICOTINE 21 MG/24 HR PATCH.TD24 TD SCH (10:36)
[2020-06-18 12:05] VITALS: BP 116/73
[2020-06-18] MEDS: BENZONATATE 100 MG CAPSULE PO SCH ×2 (18:04→21:39)
[2020-06-18] MEDS: ENOXAPARIN 40 MG/0.4 ML SQ SCH (18:05)
[2020-06-18 19:28] VITALS: BP 130/89
[2020-06-18 22:51] LABS: CLOSTRIDIUM DIFFICILE ANTIGEN NEGATIVE; CLOSTRIDIUM DIFFICILE TOXIN NEGATIVE (Negative)
[2020-06-18] MEDS: morphine SULFATE 10 MG/ML, 1ML IVPush PRN (23:08)
[2020-06-18 23:33] VITALS: BP 133/90
[2020-06-19] MEDS ORDERED: MAALOX/HYOSCYAMINE/LIDOCAINE 45 ML BTL PO ONE
[2020-06-19] MEDS ORDERED: LOPERAMIDE 2 MG CAPSULE PO PRN
[2020-06-19] MEDS: morphine SULFATE 10 MG/ML, 1ML IVPush PRN ×2 (00:01→06:36)
[2020-06-19] MEDS: NICOTINE 21 MG/24 HR PATCH.TD24 TD SCH (00:12)
[2020-06-19 01:50] VITALS: BP 112/75
[2020-06-19 05:36] LABS: BASOPHILS % (AUTO) 1 % (0-1); EOSINOPHILS % (AUTO) 2 % (1-7); LYMPHOCYTES % (AUTO) 52 % (22-44); MEAN CORPUSCULAR HEMOGLOBIN 31.6 pg (27.0-34.8); MEAN CORPUSCULAR HGB CONC 33.2 g/dL (32.4-35.8); MEAN PLATELET VOLUME 8.4 fL (7.4-10.4); MONOCYTES % (AUTO) 8 % (2-9); NEUTROPHILS % (AUTO) 37 % (42-75); PLATELET COUNT 207 x10^3/uL (130-400); RED BLOOD COUNT 3.75 x10^6/uL (3.82-5.3); RED CELL DISTRIBUTION WIDTH 13.2 % (9.6-15.2)
[2020-06-19 05:44] LABS: CHLORIDE 110 mmol/L (98-107)
[2020-06-19 05:48] LABS: ANION GAP 3 mmol/L (5-15); CREATININE 0.72 mg/dL (0.55-1.02)
[2020-06-19 06:18] LABS: MD SCAN
[2020-06-19] MEDS ORDERED: PANTOPRAZOLE 40MG TABLET PO SCH (06:30)
[2020-06-19 07:35] VITALS: BP 142/89
[2020-06-19] MEDS ORDERED: LOPE2CAP PO (07:44)
[2020-06-19] MEDS ORDERED: ACET325T26 PO (07:44)
[2020-06-19] MEDS ORDERED: PANT40TA6 PO (07:44)
[2020-06-19] MEDS ORDERED: OXYC5TAB98 PO (07:44)
[2020-06-19] MEDS ORDERED: BENZ-17 PO (07:44)
[2020-06-19] MEDS: BENZONATATE 100 MG CAPSULE PO SCH (09:00)
== END 2020-06-19 09:35 | disposition home or self-care (01) | DRG 313 ==
LOC: ED 12:40 → ORIP 13:49 → 5SO 14:48 → DCLOUNGE 06-19 09:28
PROVIDERS: ADMIT Internal Medicine; ATTEND Internal Medicine
DX: R07.89 Other chest pain (principal); E87.8 Other disorders of electrolyte and fluid balance, not elsewhere classified; F17.200 Nicotine dependence, unspecified, uncomplicated; K21.9 Gastro-esophageal reflux disease without esophagitis; Z82.49 Family history of ischemic heart disease and other diseases of the circulatory system; Z87.442 Personal history of urinary calculi; Z88.0 Allergy status to penicillin
CPT/HCPCS: 36415; 71045; 71250; 74177; 78452; 80048; 80053; 83735; 84100; 84443; 84484; 85025; 85379; 87324; 93005; 93017; 93306; 96374; 96375; 99285; G0378; J1650; J1885; J2785; Q9967; A9502; J2270; J7120

== ENCOUNTER 2021-01-01 00:43 | Emergency (ER) | payer MEDICAID ==
[~2021-01-01] VITALS: Ht 160 cm; Wt 56.4 kg
[~2021-01-01 00:43] MED LIST changes: +ACET325T26 PO; +BENZ-17 PO; +LOPE2CAP PO; +OXYC5TAB98 PO; +PANT40TA6 PO
[2021-01-01 00:46] VITALS: BP 124/85
--- NOTE | 2021-01-01 01:57 | NUR ---
Patient signed out AMA. Proper documentation filed.
== END 2021-01-01 01:58 | disposition left against medical advice (07) ==
LOC: ED 00:50
DX: R11.2 Nausea with vomiting, unspecified (principal); R51.9 Headache, unspecified; Z53.21 Procedure and treatment not carried out due to patient leaving prior to being seen by health care provider